=== PATIENT | female | born 1950 | race Caucasian/White ===

== ENCOUNTER 2020-07-09 12:09 | Outpatient (CLI) | payer MEDICARE, OTHER | END 2020-07-09 12:10 | disposition home or self-care (01) | LOC: CSHWCC 12:09 | PROVIDERS: ATTEND Nurse Practitioner Family | DX: T81.30XD Disruption of wound, unspecified, subsequent encounter (principal); S80.869D Insect bite (nonvenomous), unspecified lower leg, subsequent encounter; E78.2 Mixed hyperlipidemia; I10 Essential (primary) hypertension; K21.9 Gastro-esophageal reflux disease without esophagitis; L08.89 Other specified local infections of the skin and subcutaneous tissue; B96.89 Other specified bacterial agents as the cause of diseases classified elsewhere | CPT/HCPCS: 99203; G0463 ==